=== PATIENT | female | born 1990 | race Caucasian/White ===

== ENCOUNTER 2024-05-13 08:09 | Emergency (ER) | payer BC ==
[~2024-05-13] VITALS: Ht 160 cm; Wt 104.3 kg
[2024-05-13] MEDS ORDERED: KETOROLAC TROMETHAMINE 15 MG/ML VIAL ONE (08:36)
[2024-05-13] MEDS ORDERED: diphenhydrAMINE HCL 50 MG/ML VIAL ONE (08:36)
[2024-05-13] MEDS ORDERED: METOCLOPRAMIDE HCL 10 MG/2 ML VIAL ONE (08:37)
[2024-05-13] MEDS: IV NS 0.9% 1,000 ML BAG IV ONE ×2 (08:58→10:42)
[2024-05-13] MEDS: KETOROLAC TROMETHAMINE 15 MG/ML VIAL IV ONE (08:58)
[2024-05-13] MEDS: METOCLOPRAMIDE HCL 10 MG/2 ML VIAL IV ONE (08:58)
[2024-05-13] MEDS: diphenhydrAMINE HCL 50 MG/ML VIAL IV ONE (08:58)
[2024-05-13] MEDS ORDERED: dexaMETHasone SOD PHOSPHATE 1 ML ONE (10:05)
[2024-05-13] MEDS ORDERED: ACETAMINOPHEN ES 500 MG TABLET ONE ×2 (10:05→10:06)
[2024-05-13] MEDS ORDERED: IOHEXOL-350 100 ML VIAL IV ONE (10:06)
[2024-05-13] MEDS ORDERED: IV NS 0.9% 250 ML IV ONE (10:07)
[2024-05-13] MEDS ORDERED: CT SWABBABLE VALVE TRANS SET 1 EA INFUS.SET MC ONE (10:07)
[2024-05-13] MEDS: ACETAMINOPHEN 325 MG TABLET PO ONE (10:10)
[2024-05-13] MEDS: dexaMETHasone SOD PHOSPHATE 10 MG/ML VIAL IV ONE (10:10)
[2024-05-13 10:15] LABS: BASOPHILS % (AUTO) 0.6 % (0.0-2.0); EOSINOPHILS # (AUTO) 0.1 K/uL (0.0-0.7); EOSINOPHILS % (AUTO) 1.9 % (0.0-6.0); HEMATOCRIT 43 % (33-45); HEMOGLOBIN 14.7 g/dL (11.5-14.8); LYMPHOCYTES # (AUTO) 2.4 K/uL (0.8-4.8); LYMPHOCYTES % (AUTO) 33.1 % (20.0-44.0); MEAN CORPUSCULAR HEMOGLOBIN 30 PG (26.0-33.0); MEAN CORPUSCULAR HGB CONC 34 g/dl (31.0-36.0); MEAN CORPUSCULAR VOLUME 87 fL (82-100); MONOCYTES # (AUTO) 0.6 K/uL (0.1-1.30); MONOCYTES % (AUTO) 8.6 % (2.0-12.0); NEUTROPHILS # (AUTO) 4.1 K/uL (1.8-8.9); NEUTROPHILS % (AUTO) 55.8 % (43.0-81.0); PLATELET COUNT (AUTO) 362 K/uL (150-450); RED BLOOD CELL COUNT(AUTO) 4.95 MIL/uL (4.0-5.2); RED CELL DISTRIBUTION WIDTH 12.8 % (11.5-15.0); WHITE BLOOD COUNT (AUTO) 7.3 K/uL (4.3-11.0)
[2024-05-13 10:16] LABS: APPEARANCE,URINE Slightly Cloudy (CLEAR); BILIRUBIN,URINE Negative (NEGATIVE); BLOOD, URINE Negative Ery/uL (NEGATIVE); COLOR,URINE LIGHT YELLOW (YELLOW); KETONES,URINE Negative (NEGATIVE); LEUKOCYTE ESTERASE ,URINE Negative (NEGATIVE); NITRITE, URINE Positive (NEGATIVE); PROTEIN,URINE Negative (NEGATIVE); UGLUCOSE Negative (NEGATIVE); UROBILINOGEN,URINE 0.2 EU/dL (0.2)
[2024-05-13] MEDS: VALPROATE 500 MG in IV D5W 100 ML IV STA (10:19)
[2024-05-13 10:22] LABS: PREGNANCY TEST URINE QUAL NEGATIVE (NEGATIVE)
[2024-05-13 10:24] LABS: CALCIUM, SERUM 8.4 mg/dL (8.5-10.1); CREATININE 0.9 mg/dL (0.6-1.3); POTASSIUM 3.9 mmol/L (3.5-5.1)
[2024-05-13 10:32] LABS: BACTERIA,URINE Many /HPF (None Seen); SQUAMOUS EPITHELIAL CELL,UR Many /HPF (None Seen)
[2024-05-13 10:33] LABS: ADD URINE CULTURE YES; RBC,URINE 0-2 /HPF (0-2); WBC,URINE 0-2 /HPF (0-3)
[2024-05-13] MEDS ORDERED: IBUP-1955 PO (11:55)
[2024-05-13 12:12] VITALS: BP 133/80; TEMP 98; O2SAT 100
== END 2024-05-13 12:12 | disposition home or self-care (01) ==
LOC: ER 08:16
DX: G43.909 Migraine, unspecified, not intractable, without status migrainosus (principal); R42 Dizziness and giddiness
CPT/HCPCS: 99285; 70498; 96365; 96375; 96361; 70496; 85025; 80048; 87086; 84703; 81001; 36415; J1100; J1200; J2765; J7060; J7030 ×2; J7050; J3490; Q9967; J1885; A4223 ×2